=== PATIENT | female | born 1935 | race Two or more races ===

== ENCOUNTER 2019-06-17 19:03 | Emergency (ER) | payer MEDICARE, OTHER ==
[~2019-06-17] VITALS: Ht 165.1 cm; Wt 62.1 kg
--- NOTE | 2019-06-17 19:38 | NUR ---
PT BIB SELF R SHOULDER, LEFT KNEE PAIN S/P TRIPPED AND FELL 1730 AT [facility], DENIES HEAD INJURY. TO ER BED 2, AWAITING MED EVAL
[2019-06-17] MEDS ORDERED: ACETAMINOPHEN 325 MG TABLET PO ONE (20:00)
[2019-06-17] MEDS ORDERED: ACETAMINOPHEN 325 MG TABLET ONE (20:09)
--- NOTE | 2019-06-17 21:00 | NUR ---
PT IN BED RESTING COMFORTABLY, NO COMPLAINT OF PAIN OR DISCOMFORT AT THE TIME
--- NOTE | 2019-06-17 21:15 | NUR ---
Patient discharged to home in stable condition. Written and verbal after care instructions given. Patient verbalizes understanding of instruction.
[2019-06-17 21:17] VITALS: BP 163/91
== END 2019-06-17 21:18 | disposition home or self-care (01) ==
LOC: ER 19:24
DX: S83.8X2A Sprain of other specified parts of left knee, initial encounter (principal); M25.511 Pain in right shoulder; I11.0 Hypertensive heart disease with heart failure; I50.9 Heart failure, unspecified; W01.0XXA Fall on same level from slipping, tripping and stumbling without subsequent striking against object, initial encounter; Y93.89 Activity, other specified; Y92.89 Other specified places as the place of occurrence of the external cause; Y99.8 Other external cause status
CPT/HCPCS: 73030-TC; 73564-TC